=== PATIENT | male | born 1990 | race Caucasian/White ===

== ENCOUNTER 2018-02-05 21:19 | Inpatient (IN) ==
[2018-02-05] MEDS ORDERED: NS 1,000 ML IV ONE (21:27)
[2018-02-05] MEDS ORDERED: SALINE FLUSH 10ml SYRINGE IVF PRN (21:27)
--- NOTE | 2018-02-05 21:38 | Emergency Department Report ---
Psych HPI - General Chief Complaint: Psychiatric Symptoms Stated Complaint: suicidal drinking Time Seen by Provider: 02/05/18 21:23 Source: patient, EMS, RN notes reviewed, old records reviewed, police Mode of arrival: EMS Limitations: altered mental status - History of Present Illness HPI Narrative: 27yo man presented to the ER by EMS for evaluation of SI. Pt was at home today, when he made some suicidal statements to his ex-GF. Pt admits to having been drinking ("a half of a...") and took what was sold to him as K2 and kelly ("but I don't think it was really kelly..."). His plan, is to slit his throat, but he doesn't have a knife anymore. Pt told EMS that he also took some antihistamines (bottle at home was empty). [facility]'s deputy arrived with pt; [facility] was called 2/2 pts initial agitation at the scene. Pt arrived in handcuffs, but they were removed in the ER (pt no longer agitated). Pt is not in custody or pending any legal charges. Pt states that he was at [facility] [place] 2 [facility] ago 2/2 PTSD. MD complaint: suicidal ideation Onset (ago): hour(s) Duration: intermittent Prior Hospitalization: Yes Exacerbating factors: alcohol, drug use Context: recent alcohol abuse, recent drug abuse Associated psychiatric symptoms: depression, suicidal ideation Associated symptoms: denies other symptoms Treatments prior to arrival: physical restraints If self harm: admits thoughts of self harm, has plan - Related Data Home Medications Medication Instructions Recorded Confirmed Duloxetine HCl [Cymbalta] 30 mg PO DAILY 01/27/18 02/05/18 Atenolol/Chlorthalidone 1 each PO DAILY 02/05/18 02/05/18 [Atenolol-Chlorthalidone 50-25] CarBAMazepine [TEGretol] 200 mg PO BID 02/05/18 02/05/18 HydrOXYzine [Atarax] 25 mg PO HS 02/05/18 02/05/18 Allergies Allergy/AdvReac Type Severity Reaction Status Date / Time No Known Drug Allergies Allergy Mild Verified 02/05/18 21:28 Review of Systems Limitations: ROS unobtainable due to patient's medical condition [facility] Patient Stated Medical History Hypertension Yes: "OFF MEDS" Myocardial Infarction Yes Asthma Yes Chronic Obstructive Pulmonary Yes Disease (COPD) Gastroesophageal Reflux Yes Disease Other Yes: "KIDNEY PROBLEMS" Depression Yes Post Traumatic Stress Disorder Yes Substance Use Disorder Yes: "MARIJUANA RECENT", "PREVIOUS K2, HEROIN, COCAINE" Other Behavioral Health Yes: "PERSONALITY DISORDER" - Social History Smoking status: Current every day smoker Physical Exam - Limitations Limitations: altered mental status (GCS - 13) - General General appearance: in no apparent distress, obese, other (Somnolent) - Normal Exams: Head:: Normocephalic without trauma Eyes:: Pupils are PERRLA w/ EOMI, No scleral icterus, irritation, or foreign bodies noted ENMT:: No facial trauma, nasal exudates, pharyngeal erythema, or exudates are noted Neck:: Full range of motion, without adenopathy Lymphatic:: No lymphadenopathy Musculoskeletal:: No tenderness, or deformity noted Integumentary:: No rashes, hives, or bruising noted - Chest Chest inspection: Present: normal inspection, symmetric chest wall rise. Absent : tenderness, rash - Respiratory Respiratory exam: Present: normal lung sounds bilaterally. Absent: respiratory distress, wheezes, stridor, prolonged expiratory phase, crackles - Cardiovascular Cardiovascular exam: Present: regular rate, normal rhythm, normal heart sounds. Absent: rubs, gallop, clicks - Abdominal Exam Abdominal exam: Present: soft, normal bowel sounds. Absent: distention, tenderness, guarding, rebound, rigidity - Neurological Exam Neurological exam: Present: CN II-XII intact, reflexes normal. Absent: alert ( Somnolent), normal gait, motor sensory deficit - Expanded Neurological Exam Coma scale eye opening: to voice Coma scale motor response: obeys commands Coma scale verbal response: confused Coma scale total: 13 Course - Consultations Consultation #1: Tele hospitalist: Time: 23:41 Vital Signs Temperature 98.1 F 02/05/18 21:19 Pulse Rate 95 02/05/18 21:19 Respiratory Rate 14 02/05/18 21:19 Blood Pressure 117/56 02/05/18 21:19 Pulse Oximetry 95 02/05/18 21:19 Temperature 98.1 F 02/05/18 21:19 Pulse Rate 85 02/05/18 22:30 Respiratory Rate 19 02/05/18 22:30 Blood Pressure 124/56 02/05/18 22:30 Pulse Oximetry 94 02/05/18 22:30 Psych - MDM Narrative Medical decision making narrative: Pt somnolent following alcohol intoxication +/- k2 and/or flakka. Pt is hypokalemic and will require replacement prior to eval for inpt treatment for SI. Discussed with hospitalist, who will admit for obs prior to eval/txfr for psych treatment. - Differential Diagnosis Likely: acute psychosis, suicidal ideation, depression, drug-induced psychotic disorder, acute anxiety - Medical Records Attestation: I reviewed the patient's medical records. - Lab Data Attestation: I reviewed the patient's lab results. Result diagrams: 02/05/18 21:52 02/05/18 21:52 Lab Results 02/05/18 02/05/18 02/05/18 Range/Units 21:52 21:52 22:38 WBC 12.1 H (4.5-11.0) T/MM3 RBC 5.04 (4.50-5.90) M/MM3 Hgb 16.1 (13.5-17.5) GM/DL Hct 45.8 (41-53) % MCV 90.9 (80-100) UM3 MCH 31.9 (26-34) UUG MCHC 35.2 (31-37) GM/DL RDW Std Deviation 40.0 (36.9-50.2) FL Plt Count 271 (130-400) T/MM3 MPV 10.5 (9.4-12.4) UM3 Immature Gran % (Auto) 0.4 (0.0-0.5) % Neut % (Auto) 64.9 (33-66) % Lymph % (Auto) 26.2 (23-45) % [place] % (Auto) 6.7 (0-9.0) % Eos % (Auto) 1.6 (0-4) % Baso % (Auto) 0.2 (0-2) % Neut # (Auto) 7.9 H (1.8-7.7) T/MM3 Lymph # (Auto) 3.2 (1-4.8) T/MM3 [place] # (Auto) 0.8 (0-0.8) T/MM3 Eos # (Auto) 0.2 (0-0.5) T/MM3 Baso # (Auto) 0.0 (0-0.2) T/MM3 Abs Immat Gran (auto) 0.05 H (0.00-0.03) T/MM3 Turbidity < 20 (0-20) Sodium 145 H (134-144) MEQ/L Potassium 2.6 L* (3.6-5) MEQ/L Chloride 98 (98-107) MEQ/L Carbon Dioxide 27 (22-30) MEQ/L Anion Gap 20 H (5-15) meq/L BUN 12.0 (9-20) MG/DL Creatinine 1.0 (0.8-1.5) mg/dL GFR Calculation 88 BUN/Creatinine Ratio 12 (6-26) RATIO Glucose 112 H (75-110) MG/DL Calculated Osmolality 280 (261-280) MOSM/KG Calcium 9.0 (8.4-10.2) MG/DL Total Bilirubin 0.20 (0.20-1.30) MG/DL Icterus Index < 2 (0-7) AST 53 (17-59) U/L ALT 71 H (1-50) U/L Alkaline Phosphatase 141 H (38-126) U/L Total Protein 8.1 (6.3-8.2) g/dL Albumin 4.9 (3.5-5.0) g/dL Globulin 3.2 (2.4-3.6) G/DL Albumin/Globulin Ratio 1.5 (1.1-2.2) RATIO TSH 0.70 (0.47-4.68) mIU/L Specimen Hemolysis < 15 (0-25) Ur Collection Type Urine, void-cc/notcc Urine Color Yellow (YELLOW) Urine Clarity Clear Urine pH 6.0 (5.0-8.0) Ur Specific [place] <=1.005 L (1.015-1.025) Urine Protein Negative (NEGATIVE) Urine Glucose (UA) Negative (NEGATIVE) Urine Ketones Negative (NEGATIVE) Urine Occult Blood Negative (NEGATIVE) Urine Nitrate Negative (NEGATIVE) Urine Bilirubin Negative (NEGATIVE) Urine Urobilinogen 0.2 (NORMAL) EU/DL Ur Leukocyte Esterase Negative (NEGATIVE) Urinalysis Comment Microscopic not ind. Salicylates < 1.0 L (2-20) MG/DL Urine Opiates Screen ng/mL Ur Oxycodone Screen ng/mL Urine Methadone Screen ng/mL Ur Propoxyphene Screen ng/mL Acetaminophen < 10 L (10-30) UG/ML Ur Barbiturates Screen ng/mL U Tricyclic Antidepress ng/mL Ur Phencyclidine Scrn ng/mL Ur Amphetamines Screen ng/mL U Methamphetamines Scrn ng/mL U Benzodiazepines Scrn ng/mL Urine Cocaine Screen ng/mL U Cannabinoids Screen ng/mL Ur Drug Screen Confirm Alcohol, Quantitative 211 (<10) mg/dL 02/05/18 02/05/18 Range/Units 22:38 22:38 WBC (4.5-11.0) T/MM3 RBC (4.50-5.90) M/MM3 Hgb (13.5-17.5) GM/DL Hct (41-53) % MCV (80-100) UM3 MCH (26-34) UUG MCHC (31-37) GM/DL RDW Std Deviation (36.9-50.2) FL Plt Count (130-400) T/MM3 MPV (9.4-12.4) UM3 Immature Gran % (Auto) (0.0-0.5) % Neut % (Auto) (33-66) % Lymph % (Auto) (23-45) % [place] % (Auto) (0-9.0) % Eos % (Auto) (0-4) % Baso % (Auto) (0-2) % Neut # (Auto) (1.8-7.7) T/MM3 Lymph # (Auto) (1-4.8) T/MM3 [place] # (Auto) (0-0.8) T/MM3 Eos # (Auto) (0-0.5) T/MM3 Baso # (Auto) (0-0.2) T/MM3 Abs Immat Gran (auto) (0.00-0.03) T/MM3 Turbidity (0-20) Sodium (134-144) MEQ/L Potassium (3.6-5) MEQ/L Chloride (98-107) MEQ/L Carbon Dioxide (22-30) MEQ/L Anion Gap (5-15) meq/L BUN (9-20) MG/DL Creatinine (0.8-1.5) mg/dL GFR Calculation BUN/Creatinine Ratio (6-26) RATIO Glucose (75-110) MG/DL Calculated Osmolality (261-280) MOSM/KG Calcium (8.4-10.2) MG/DL Total Bilirubin (0.20-1.30) MG/DL Icterus Index (0-7) AST (17-59) U/L ALT (1-50) U/L Alkaline Phosphatase (38-126) U/L Total Protein (6.3-8.2) g/dL Albumin (3.5-5.0) g/dL Globulin (2.4-3.6) G/DL Albumin/Globulin Ratio (1.1-2.2) RATIO TSH (0.47-4.68) mIU/L Specimen Hemolysis (0-25) Ur Collection Type Urine Color (YELLOW) Urine Clarity Urine pH (5.0-8.0) Ur Specific [place] (1.015-1.025) Urine Protein (NEGATIVE) Urine Glucose (UA) (NEGATIVE) Urine Ketones (NEGATIVE) Urine Occult Blood (NEGATIVE) Urine Nitrate (NEGATIVE) Urine Bilirubin (NEGATIVE) Urine Urobilinogen (NORMAL) EU/DL Ur Leukocyte Esterase (NEGATIVE) Urinalysis Comment Salicylates (2-20) MG/DL Urine Opiates Screen Negative ng/mL Ur Oxycodone Screen Negative ng/mL Urine Methadone Screen Negative ng/mL Ur Propoxyphene Screen Negative ng/mL Acetaminophen (10-30) UG/ML Ur Barbiturates Screen Negative ng/mL U Tricyclic Antidepress Negative ng/mL Ur Phencyclidine Scrn Negative ng/mL Ur Amphetamines Screen Negative ng/mL U Methamphetamines Scrn Negative ng/mL U Benzodiazepines Scrn Negative ng/mL Urine Cocaine Screen Negative ng/mL U Cannabinoids Screen Positive ng/mL Ur Drug Screen Confirm Sent out Alcohol, Quantitative (<10) mg/dL - Radiology Data Attestation: I reviewed the patient's radiology results. CXR: Poor inspiratory effort. Cardiomegaly. No acute CT pathology. - EKG Data EKG #1 EKG attestation: Yes: I reviewed and interpreted this EKG. EKG shows normal: sinus rhythm, axis, intervals, ST-T waves Rate: normal Rhythm: NSR Happy/QRS: RBBB When compared to previous EKG there are: no significant changes Interpretation: no acute changes, unchanged when compared to prior tracing (date ) (Nov 2017) Disposition Clinical Impression: Suicidal ideation, Hypokalemia, Cannabis abuse Alcohol intoxication Qualifiers: Complication of substance-induced condition: uncomplicated Qualified Code(s): F10.920 - Alcohol use, unspecified with intoxication, uncomplicated Disposition: 02 To OBS [facility] [place] Print Language: Turkmen Condition: Stable Prescriptions: No Action Duloxetine HCl [Cymbalta] 30 mg PO DAILY Atenolol/Chlorthalidone [Atenolol-Chlorthalidone 50-25] 1 each PO DAILY CarBAMazepine [TEGretol] 200 mg PO BID HydrOXYzine [Atarax] 25 mg PO HS Time of Disposition: 23:56 - Seen By: physician
[2018-02-05] MEDS ORDERED: OLANZapine INJ 10 MG VIAL IM ONE (22:22)
[2018-02-05] MEDS: POTASSIUM CHLORIDE PREMIX 10 MEQ/100 ML BAG IV SCH ×2 (22:52→23:37)
[2018-02-06] MEDS ORDERED: ACETAMINOPHEN 650 MG SUPPOSITORY PR PRN (00:32)
[2018-02-06] MEDS ORDERED: POTASSIUM CHLORIDE PREMIX 10 MEQ/100 ML BAG IV SCH (00:32)
[2018-02-06] MEDS ORDERED: SALINE FLUSH 10ml SYRINGE IV PRN (00:32)
[2018-02-06] MEDS ORDERED: ONDANSETRON 4 MG/2 ML INJECTION IVP PRN (00:32)
[2018-02-06 00:43] VITALS: BMI 40.8
--- NOTE | 2018-02-06 00:53 | History & Physical Report ---
History of Present Illness Date: 02/06/18 Chief complaint: suicidal HPI: This is a 27 y/o who has a history of PTSD. The patient was seen in the ED about 9 d ago and transferred to the psych chacko @ the [facility]. At that time stated he planned to cut his throat. The patient apparently continues to have suidical ideation. Today he drank alcohol and did at least K 2. The patient is evaluated by PD and EMS. Not clear who activated. Patient was delirious and ultimately was in handcuffs and transported by EMS. UDS is positive for THC only. BAL 200's. The patient's K is low. At this time he was treated with Xyprexa IM 10 mg in the ED and is somnolent and unable to provide a history. He is to be admitted into the ICU for further monitoring and medical stabilization prior to being sent back to an inpatient psychiatric facility. Review of Systems Review of systems: patient is completely unable to provide at this time. Please see ED notes for further information. Past Medical History Medical History: Medical History (Last Updated 02/06/18 @ 15:19 by Paula Michaels MD) Asthma Depression Hypertension Myocardial infarction Drug/anxiety induced; heart catheter-no interventions PTSD (post-traumatic stress disorder) Medical History Updates: unkown at this time, presummed major depression, PTSD Surgical History: unknown Family History Updates: unkown at this time Family History: As Above - Social History Smoking status: Current every day smoker Substance use type: marijuana Alcohol intake: current Alcohol intake frequency: 3 or more drinks per day Household members: none service: Yes Medications Home Medications Medication Instructions Recorded Confirmed Type Duloxetine HCl [Cymbalta] 30 mg PO DAILY 01/27/18 02/05/18 History Atenolol/Chlorthalidone 1 each PO DAILY 02/05/18 02/05/18 History [Atenolol-Chlorthalidone 50-25] CarBAMazepine [TEGretol] 200 mg PO BID 02/05/18 02/05/18 History HydrOXYzine [Atarax] 25 mg PO HS 02/05/18 02/05/18 History Allergies Allergy/AdvReac Type Severity Reaction Status Date / Time No Known Drug Allergies Allergy Mild Verified 02/05/18 21:28 Exam Vital Signs: Temperature 96.7 F L 02/06/18 00:32 Pulse Rate 77 02/05/18 23:45 Respiratory Rate 16 02/05/18 23:45 Blood Pressure 130/62 02/05/18 23:45 Pulse Oximetry 94 02/05/18 23:45 Telemetry Rhythm: Sinus Rhythm Height/Weight/BMI: Height 1.7 m Weight 118.1 kg Body Mass Index 40.8 - Constitutional Present: mild distress, well nourished, well developed, average body habitus, disheveled, somnolent. Absent: cooperative - Routine HEENT Exam Head: Present: normocephalic, atraumatic Eye: Present: EOMI, conjunctivae pink. Absent: scleral injection ENT: Present: mucous membranes moist - Routine Neck Exam Present: supple, full ROM - Routine Respiratory Exam Present: CTA bilaterally - Routine Cardiovascular Exam Present: RRR, no murmur - Routine Abdominal Exam Present: soft, normoactive bowel sounds, non distended, non tender - Routine Extremities Exam Present: no edema Comments: patient with scattered macular rash to both legs. - Routine Back/Spine/Pelvis Exam Back/Spine: Present: full ROM - Routine Skin Exam Present: intact, rash - Routine Neurological Exam Present: CN II-XII intact, hearing grossly intact. Absent: alert, oriented X3, motor deficit, facial asymmetry - Routine Psychiatric Exam Present: normal thought process, suicidal ideation, depressed, anxious, agitated. Absent: normal affect, auditory hallucinations, visual hallucinations , cooperative Results - Labs CBC & Chem 7: 02/05/18 21:52 02/06/18 04:20 Labs: labs reviewed and pertinent values discussed below Assessment and Plan (1) Alcohol intoxication Current visit: Yes Status: Acute (2) Cannabis abuse Current visit: Yes Status: Acute (3) Hypokalemia Current visit: Yes Status: Acute (4) Suicidal ideation Current visit: Yes Status: Acute Assessment and Plan: 1. suicide ideation/attempt acute POA: patient took K2, THC, alcohol and unknown other agents. UDS appreciated. Stated he wanted to . Admit to ICU to medically stabilize and screen when stable. [facility] of [facility] to 2. major depression acute on chronic POA; again work with screener to place. [facility] 3. hypokalemia acute POA: on chlorthalidone. replace and recheck in the am. Needs to be above 3.5 at least or I suspect psych will not take 4. rash unknown acuity POA; ? folliculitis. monitor and get more history from patient when he wakes, no antibiotics yet 5. PTSD chronic POA: to be aware of, obviously contributes to sx being addressed today 6. acute alcohol intoxication : no indication for CIWA at this time. if in hospital greater than 24 hours consider 7. DVT ppx; SCD, lovenox 8. gastric ppx: PPI DVT Prophylaxis: SCD's, Lovenox GI Prophylaxis: Protonix Resuscitation Status: Full Code - Time spent with patient Time with patient PN: 30 minutes - Physician Narrative Physician: Paula Michaels MD Narrative: Date: 02/06/18 Time: 1514 Dr. Lares's note reviewed. Jose Antonio interviewed and examined. CC: Alcohol intoxication/suicidal HPI: Jose Antonio is a 27-year-old with PTSD. He was recently hospitalized at the [facility] psychiatry chacko after presenting with suicidal threat. He was discharged on combined treatment with Cymbalta, Tegretol, and hydroxyzine. He reports he was doing well and was in a great mood yesterday when he went to visit a friend and consult her regarding of an uncle. He intended to have one drink but instead drink excessively which led to marijuana use and reported K-2 last night (patient denies this morning). Patient contacted family members reporting that he did not feel safe and subsequently made suicidal statements or threats to his ex-girlfriend threatening to get a knife and slit his throat consistent with prior suicidal threats. EMS was activated and [facility] was dispatched due to agitation on the scene and patient was placed in handcuffs prior to transportation to the emergency room. At some point patient reported to having been drinking ("a half of a...") and took what was sold to him as K2 and kelly ("but I don't think it was really kelly..."). His plan, is to slit his throat, but he doesn't have a knife anymore. Pt told EMS that he also took some antihistamines (bottle at home was empty-presumably hydroxyzine) . Patient was subsequently sedated with Zyprexa 10 mg IM in the emergency room and admitted to the intensive care unit for further monitoring and medical stabilization prior to psychiatric assessment. PH/SH/FH: agree with that recorded above with my additions as described above; no surgical history. Patient's mother has coronary disease, father mental illness, and there is history of diabetes in the maternal family. Patient has smoked one to one and a half packs of cigarettes daily since he was a teenager reports increased use recently. He uses marijuana a couple times a month and has a history of methamphetamine use. Reports alcohol use has escalated in the past year since he's been off methamphetamine. The patient is an [place] vet on disability. ROS: 10 point review negative outside of symptoms mentioned in history of present illness; at this time patient reports that he feels great. He denies headache/nausea or vomiting, any injuries related to events last night, or myalgias. EXAM: General-NAD, alert, sitting on bedside eating fast food; 96.5, 135/71, 73, 95% room air HEENT-PERRL, EOMI without nystagmus, conjunctiva clear, sclera anicteric, conjugate gaze, facial structures symmetric, oropharynx clear, neck supple and without adenopathy Lungs-respirations nonlabored, good airflow, breath sounds clear Cardiac-regular rhythm, S1-S2 Abd-soft, nontender, obese, bowel sounds present Ext-without edema Skin-without rash, wounds; several tattoos Neuro-cranial nerves 3-12 intact, motor tone/pelvic within normal limits, sensation intact to light touch/cold 4 extremities Psych-calm, cooperative, in good spirits DATA: CBC as above, repeat potassium this morning 3.6, creatinine 0.6 following hydration. Bilirubin 0.2, AST 53, ALT 71, alkaline phosphatase 141- liver enzymes been checked twice earlier this year which time ALT was normal, alkaline phosphatase was slightly elevated on 01/27, normal 12/13. UDS positive for marijuana. Alcohol on admission 211, salicylate/Tylenol negative Chest x-ray obtained overnight reviewed by myself demonstrating no acute cardiopulmonary disease EKG sinus rhythm, RBBB, diffuse T-wave [id number] previously present A/P: Alcohol intoxication Suicidal threats, reported Polysubstance abuse (marijuana/alcohol/hx meth) Hypokalemia, improved Depression PTSD Abnormal liver enzymes Hypertension Asthma History myocardial infarction Continue supportive care pending psychiatric assessment. Reassess liver enzymes in the morning, pattern atypical for alcohol use-if ALT remains elevated will screen hepatitis C in a.m. Continue recently prescribed psychiatric regimen pending further psychiatric input. Patient will likely benefit from alcohol treatment. Resume Symbicort and when necessary albuterol per home regimen. Continue atenolol/chlorthalidone for hypertension. Hospital Course Summary Disclaimer: The visit summary below is not to be considered part of the above Progress Note.
[2018-02-06] MEDS: NS with KCL 20 mEq 1,000 ML IV SCH ×3 (00:54→18:19)
[2018-02-06] MEDS: POTASSIUM CHLORIDE PREMIX 10 MEQ/100 ML BAG IV SCH ×2 (00:55→02:17)
--- NOTE | 2018-02-06 08:23 | XRay Report ---
Indication: AMS PROCEDURE: XR chest 1V: Encounter: Initial Comparison: None FINDINGS: The lungs are clear. There is no abnormal airspace opacity, pleural effusion or pneumothorax identified. The heart size, pulmonary vasculature and mediastinum are within normal limits. No significant skeletal abnormality is seen. IMPRESSION: No acute cardiopulmonary abnormality. .
[2018-02-06] MEDS: ATENOLOL/CHLORTHALIDONE 50 MG/25 MG TABLET PO SCH (08:24)
[2018-02-06] MEDS: CarBAMazepine 200 MG TABLET PO SCH ×2 (08:24→17:03)
[2018-02-06] MEDS: ENOXAPARIN 40 MG/0.4 ML INJECTION SQ SCH (08:24)
[2018-02-06] MEDS ORDERED: ALBUTEROL 2.5mg/3ml (0.083%) NEB AEROSOL PRN (15:17)
[2018-02-06] MEDS: IBUPROFEN 600 MG TABLET PO PRN (17:03)
[2018-02-06] MEDS ORDERED: INHALER ASSIST DEVICE (Optichamber) MC ONE (20:23)
[2018-02-06] MEDS: BUDESONIDE/FORMOTEROL 80/4.5mcg INHALER ORAL INH SCH (20:25)
[2018-02-07] MEDS: NS with KCL 20 mEq 1,000 ML IV SCH ×2 (02:20→11:04)
[2018-02-07 04:13] VITALS: O2SAT 94
[2018-02-07] MEDS: CarBAMazepine 200 MG TABLET PO SCH (08:45)
[2018-02-07] MEDS: ATENOLOL/CHLORTHALIDONE 50 MG/25 MG TABLET PO SCH ×2 (08:46→12:40)
[2018-02-07] MEDS: IBUPROFEN 600 MG TABLET PO PRN ×2 (08:46→14:33)
[2018-02-07] MEDS: ENOXAPARIN 40 MG/0.4 ML INJECTION SQ SCH (08:46)
[2018-02-07] MEDS ORDERED: DULOXETINE 30 MG CAPSULE PO SCH (09:00)
[2018-02-07] MEDS: BUDESONIDE/FORMOTEROL 80/4.5mcg INHALER ORAL INH SCH (10:12)
[2018-02-07 11:47] VITALS: TEMP 98
--- NOTE | 2018-02-07 15:22 | Neuropsychiatric Consult ---
[facility] Date: 02/07/18 Requesting Physician: Brendon Harrison Reason for Consultation: Safety assessment Start Time: 15:00 Stop Time: 15:40 History of Present Illness: Patient is a 27-year-old single, disabled () male who was brought to [facility] by EMS on 02/05/18 due to concern for patient's safety. Patient was recently [facility] [place] and prescribed new medications, including Tegretol. Patient was quite intoxicated the night of admission (BAL 200s upon admission) and began having suicidal thoughts but called 911 for help. Patient was given Zyprexa 10mg IM in the ED for agitation and was admitted to the ICU for further care. Patient has now been detoxed from alcohol and reports that he feels much more clear-headed. He states that he does have chronic issues with PTSD due to his time in the service and that he has been receiving treatment at the [facility] as above. He felt that the new medication he started worked well for him until he drank alcohol and became more intoxicated than he expected to. Patient admits that he has a problem with alcohol and plans to attend outpatient substance treatment through the [facility] as well as psychiatric f/u. 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 Patient denies any current suicidal thoughts or plan. He feels overall his mood was improved until he became intoxicated. He reports sleeping well with his new medications and says others he has tried (Seroquel, Ambien, trazodone) don't work as well as current meds. He denies HI, AVH or symptoms consistent with bipolar disorder. Patient plans to return home living with his mother Janna. I spoke with Janna ([phone]) and she also agreed that patient was safe to return home and continue outpatient psych and substance abuse f/u. She states that there are no guns in the home and she has removed all knives. She agrees to lock medications from patient's access and administer them daily, as well as provide supervision for safety and transportation to f/u appointment on 02/08. Review of Systems [facility] Patient Stated Medical History Hypertension Yes: "OFF MEDS" Myocardial Infarction Yes Asthma Yes Chronic Obstructive Pulmonary Yes Disease (COPD) Gastroesophageal Reflux Yes Disease Other Yes: "KIDNEY PROBLEMS" Other Musculoskeletal Yes: Degenerative Disk Disease Depression Yes Post Traumatic Stress Disorder Yes: [place] Substance Use Disorder Yes: "MARIJUANA RECENT", "PREVIOUS K2, HEROIN, COCAINE" Other Behavioral Health Yes: MULTIPLE PERSONALITY DISORDER Clinic Medical History (Last Updated 02/06/18 @ 15:19 by Paula Michaels MD) Asthma (Acute Medical) Depression (Acute Medical) Hypertension (Acute Medical) Myocardial infarction (Acute Medical) Drug/anxiety induced; heart catheter-no interventions PTSD (post-traumatic stress disorder) (Acute Medical) Medical History Updates: unkown at this time, presummed major depression, PTSD Surgical History: unknown Family History: Family History (Last Updated 02/06/18 @ 15:24 by Paula Michaels MD) Unknown Diabetes Father Chronic mental illness Mother Coronary artery disease Family History Updates: Father: was adopted, is in fpc for murder. Mother's side of family has depression. - Social History Smoking status: Current every day smoker Substance use type: marijuana Alcohol intake: current Alcohol intake frequency: 3 or more drinks per day Household members: none service: Yes Previous occupational history: Disabled Social history: 7th grade education then obtained GED before joining [employer]. Now on disability but receives services through [employer]. Lives with mother. Review of Systems All systems: reviewed and no additional remarkable complaints except as stated - Musculoskeletal Musculoskeletal: Present: other (chronic back pain) - Psychiatric Psychiatric: Present: as per HPI, depression. Absent: auditory hallucinations, homicidal ideation, suicidal ideation, visual hallucinations Mental Status Exam Vitals: Last Vital Signs Temp 98 F 02/07/18 11:45 Pulse 62 02/07/18 12:00 Resp 36 H 02/07/18 11:45 BP 152/95 H 02/07/18 11:00 Pulse Ox 94 02/07/18 00:00 Height: 1.7 m Weight: 121.9 kg - Mental Status Exam Muscle Strength/Tone: Normal Dressing: Casual Grooming: Fair Attitude: Cooperative Motor Activity: Normal Eye Contact: Good Speech: Normal Volume: Normal Rhythm: Appropriate Rhythm Sensory: Alert Orientation: Oriented X4 Mood: Neutral Affect: Relaxed Rate of Thoughts: Appropriate Rate Thought Organization: Organized Associations: Intact Abstract Reasoning: Intact, able to abstract Computation: Appropriate for Education Level Thought Content: Normal (focused on wanting to get better) Perception/Psychotic: Perception Normal Language: Naming Intact Fund of Knowledge: Appropriate Memory: Grossly Intact (other than when intoxicated) Suicidal Ideation: Denies Homicidal Ideation: Denies Insight: Fair Judgement: Fair Impulse Control: Fair - Laboratory Result Diagrams: 02/05/18 21:52 02/07/18 04:22 Laboratory Results - last 24 hr 02/07/18 04:22 Turbidity < 20 Sodium 142 Potassium 4.0 Chloride 104 Carbon Dioxide 30 Anion Gap 8 BUN 15.0 Creatinine 0.5 L GFR Calculation 197 BUN/Creatinine Ratio 30 H Glucose 105 Calculated Osmolality 274 Calcium 8.4 Total Bilirubin 0.40 Icterus Index < 2 AST 54 ALT 54 H Alkaline Phosphatase 123 Total Protein 6.5 Albumin 3.6 Globulin 2.9 Albumin/Globulin Ratio 1.2 Specimen Hemolysis 57 H Assessment and Plan (1) PTSD (post-traumatic stress disorder) Status: Chronic (2) Alcohol use disorder Status: Chronic (3) Cannabis abuse Status: Chronic (4) Alcohol intoxication Qualifiers: Complication of substance-induced condition: uncomplicated Qualified Code(s ): F10.920 - Alcohol use, unspecified with intoxication, uncomplicated Status: Resolved Patient is no longer an imminent danger to self or others and opts for outpatient psychiatric and substance treatment f/u. Appointment scheduled tomorrow at [facility]. Discussed plan with mother, who is in agreement with discharge. Safety recommendations as above. Crisis plan agreed upon with patient. Discharge to home with mother.
--- NOTE | 2018-02-07 16:45 | Discharge Summary ---
Discharge Information Date of admission: 02/05/18 23:58 Anticipated date of discharge: 02/07/18 Attending Physician: Brendon Harrison MD - Discharge Diagnosis (1) Suicidal ideation Status: Resolved (2) Hypokalemia Status: Acute (3) Alcohol intoxication Status: Resolved (4) Cannabis abuse Status: Acute - Laboratory Labs: 02/07/18 04:22 History of Present Illness HPI: This is a 27 y/o who has a history of PTSD. The patient was seen in the ED about 9 d ago and transferred to the psych chacko @ the [place]. At that time stated he planned to cut his throat. The patient apparently continues to have suidical ideation. Today he drank alcohol and did at least K 2. The patient is evaluated by PD and EMS. Not clear who activated. Patient was delirious and ultimately was in handcuffs and transported by EMS. UDS is positive for THC only. BAL 200's. The patient's K is low. At this time he was treated with Xyprexa IM 10 mg in the ED and is somnolent and unable to provide a history. He is to be admitted into the ICU for further monitoring and medical stabilization prior to being sent back to an inpatient psychiatric facility. Hospital Course This is a general summary of the patient's hospital course. For more details refer to the complete medical record. Pt came in d/t SI and EtOH intoxication and did well. Pt was medically stable and did not require much tx for EtOH withdrawal. Pt denied any SI or HI upon discharge. Pt follows with [place] [facility] and was discharged, after clearance by psych, to follow up with them as outpatient. Pt had high BPs while in the hospital and so his home medication of atenolol/chlorthalidone was continued. He had HRs in the 50s occasionally but pt was asymptomatic and reported that was normal for him. Pt was told to continue to monitor that and if any concerns to stop medication and seek medical care. Discharge Plan - Med Rec/Dispo Additional Instructions: Follow up with [place] [facility] Prescriptions: Continue Duloxetine HCl [Cymbalta] 30 mg PO DAILY Atenolol/Chlorthalidone [Atenolol-Chlorthalidone 50-25] 1 each PO DAILY CarBAMazepine [TEGretol] 200 mg PO BID HydrOXYzine [Atarax] 25 mg PO HS - Disposition 01 Discharged Home, Self-Care - Dismissal Complete Discharge Instructions are:: Complete
[2018-02-07 17:14] VITALS: BP 159/113; PULSE 61; RESP 30
== END 2018-02-07 17:44 | disposition home or self-care (01) | DRG 897 ==
LOC: ED 21:19 → SUATTDRO 23:58 → CCU 23:58
PROVIDERS: ADMIT Emergency Medicine; ATTEND Internal Medicine